=== PATIENT | male | born 1970 | race Caucasian/White ===

== ENCOUNTER 2016-04-15 11:42 | Emergency (ER) | payer OTHER ==
[~2016-04-15] VITALS: Ht 182.9 cm; Wt 122.3 kg
[~2016-04-15 11:42] MED LIST: DELTASONE20 M1 PO; IBUPROFEN200 M1; LEVAQUIN500 MG PO; MEDROL DOSEPAK4 MG PO; MUCINEX600 MG PO; NOHOMEMEDS; OXAYDO5 MG PO; PHENERGAN DM SYR1 ML PO; PROAIR HFA8.5 GM IH; TRAMADOL HCL50 MG PO; VENTOLIN HFA18 GM IH; ZITHROMAX Z-PA250 MG PO
[2016-04-15] MEDS ORDERED: PREDNISONE20 MG PO (12:46)
[2016-04-15 13:00] VITALS: BP 144/103
== END 2016-04-15 13:01 | disposition home or self-care (01) ==
LOC: EME 11:42
DX: R59.0 Localized enlarged lymph nodes (principal)
CPT/HCPCS: 99281; 99284; J7512